=== PATIENT | female | born 1955 | race Caucasian/White ===

== ENCOUNTER 2016-11-12 16:08 | Emergency (ER) | payer OTHER ==
[~2016-11-12 16:08] MED LIST: ALBUTEROL HFA6.7 GM IH; AMITRIPTYLINE H25 MG PO; CENTRUM SILVER1 EAC1 PO; COUMADIN2 MG PO; GLUCOPHAGE500 MG PO; ICAPS TABLET1 EACH PO; LISINOPRIL40 MG PO; LOTRIMIN15 GM TOP; MEDROXYPROGESTE10 MG PO; NORVASC10 MG PO; SINGULAIR10 MG PO; SYNTHROID75 MCG PO; ZANTAC150 MG PO; ZOCOR20 MG PO; ZYRTEC10 MG PO
== END 2016-11-12 21:38 | disposition home or self-care (01) ==
LOC: ER 16:08
DX: R07.89 Other chest pain (principal); I10 Essential (primary) hypertension; I48.91 Unspecified atrial fibrillation; F41.9 Anxiety disorder, unspecified; J44.9 Chronic obstructive pulmonary disease, unspecified; Z79.899 Other long term (current) drug therapy; Z79.01 Long term (current) use of anticoagulants; Z79.84 Long term (current) use of oral hypoglycemic drugs; Z88.0 Allergy status to penicillin
CPT/HCPCS: 36415; 96360

== ENCOUNTER 2016-11-14 15:51 | Emergency (ER) | payer OTHER | END 2016-11-14 21:10 | disposition short-term general hospital (02) | LOC: ER 15:51 | DX: I95.9 Hypotension, unspecified (principal); L03.311 Cellulitis of abdominal wall; M25.561 Pain in right knee; I10 Essential (primary) hypertension; E11.9 Type 2 diabetes mellitus without complications; E03.9 Hypothyroidism, unspecified; K21.9 Gastro-esophageal reflux disease without esophagitis; Z86.718 Personal history of other venous thrombosis and embolism; Z79.01 Long term (current) use of anticoagulants; G47.33 Obstructive sleep apnea (adult) (pediatric); Z79.899 Other long term (current) drug therapy; Z88.0 Allergy status to penicillin; Z79.84 Long term (current) use of oral hypoglycemic drugs | CPT/HCPCS: 36415; 51702; 96365; 96366; 96367; 96368; J3370 ==